=== PATIENT | male | born 1950 | race Caucasian/White ===

== ENCOUNTER 2020-10-30 16:06 | Emergency (ER) | payer MEDICARE, OTHER ==
[2020-10-30] MEDS ORDERED: KETOROLAC 30 MG/ML VIAL IVP STA (16:31)
--- NOTE | 2020-10-30 16:34 | ED Physician Documentation ---
History of Present Illness - Stated complaint Stated Complaint: FULL BODY PX - Chief complaint Chief Complaint: General - History obtained from History obtained from: Patient - Additonal information Additional information: 70-year-old gentleman with chronic back issues, says he needs disc surgery, also has atrial fibrillation on anticoagulation. He is visiting from [facility] with his new girlfriend who lives here. He went to the urgent care with complaints today and then requested to come to the emergency department. 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 There spasms of muscles generally affecting the right upper and both lower extremities as well as his back and stomach. He also says that his left thumb is affected, but the remainder of the left upper extremity is relatively spared. He was placed on some oxycodone for this by his primary care physician which helps only fleetingly. He went to the emergency department in [place], he says there he was given some IV fluid for presumed dehydration which was not helpful. Labs were checked but he does not know the results. Current medications include: Xarelto 20 mg orally once a day Diltiazem long-acting 200 filling 40 mg once a day Vitamin D3 1000 units once a day Flomax 0.4 mg once a day Synthroid 75 mcg once a day Atorvastatin 40 mg once a day (he says this is not new, but queried given that it causes myalgias) Lisinopril 40 mg once a day Lantus 25 units twice a day Novolin 25 units twice a day Review of Systems Constitutional: reports: Chills, Myalgias, Fatigue Eyes: denies: Loss of vision, Decreased vision Nose: denies: Rhinorrhea / runny nose Cardiac: reports: Palpitations, Calf pain Respiratory: reports: Dyspnea GI: reports: Abdominal Pain, Vomiting, Diarrhea : reports: Dysuria PD PAST MEDICAL HISTORY - Present Medications Home Medications: Ambulatory Orders Medication Instructions Recorded Confirmed Atorvastatin Calcium 40 mg PO HS 10/30/20 10/30/20 Cholecalciferol [Vitamin D3] 25 mcg PO DAILY 10/30/20 10/30/20 Insulin 70/30 Human [NovoLIN] 25 unit SUBQ BID 10/30/20 10/30/20 Insulin Glargine [Lantus Solostar] 25 unit SQ BID 10/30/20 10/30/20 LORazepam [Ativan] 1 mg PO TID PRN #7 tablet 10/30/20 Levothyroxine Sodium [Synthroid] 75 mcg PO DAILY 10/30/20 10/30/20 Lisinopril [Zestril] 40 mg PO DAILY 10/30/20 10/30/20 Rivaroxaban [Xarelto] 20 mg PO DAILY 10/30/20 10/30/20 Tamsulosin [Flomax] 0.4 mg PO DAILY 10/30/20 10/30/20 diltiaZEM CD [Cardizem Cd] 240 mg PO DAILY 10/30/20 10/30/20 - Allergies Allergies/Adverse Reactions: Allergies Allergy/AdvReac Type Severity Reaction Status Date / Time No Known Drug Allergies Allergy Verified 10/30/20 16:16 PD ED PE NORMAL - Vitals Vital signs reviewed: Yes - General General: Alert and oriented X 3, Other (Slightly agitated and fidgety) - HEENT HEENT: PERRL, EOMI - Neck Neck: Supple, no meningeal sign, No bony TTP - Cardiac Cardiac: Other (Frequent extrasystoles) - Respiratory Respiratory: No respiratory distress, Clear bilaterally - Abdomen Abdomen: Normal bowel sounds, Soft, Non tender - Back Back: No CVA TTP, No spinal TTP - Derm Derm: Normal color, Warm and dry - Extremities Extremities: No deformity, No tenderness to palpate, Normal ROM s pain, No edema, No calf tenderness / cord - Neuro Neuro: Alert and oriented X 3, electorate officer 2-12 intact, No motor deficit, No sensory deficit, Normal speech Results - Vitals Vitals: Vital Signs - 24 hr 10/30/20 10/30/20 16:11 16:38 Temperature 36.3 C L Heart Rate 98 103 H Respiratory 16 12 Rate Blood Pressure 148/65 H 143/83 H O2 Saturation 95 95 Oxygen O2 Source Room air - EKG (time done) 1624 Rate: Rate (enter#) (105) Rhythm: Other (Rhythm is not clear because of artifact; There is a lot of ectopy and a left bundle branch block.) - Labs Labs: Laboratory Tests 10/30/20 10/30/20 10/30/20 16:18 16:35 16:35 WBC 7.9 RBC 4.64 L Hgb 16.6 Hct 46.5 MCV 100.2 H MCH 35.8 H MCHC 35.7 RDW 17.7 H Plt Count 127 L MPV 10.1 Neut # (Auto) 5.0 Lymph # (Auto) 1.7 Charles # (Auto) 1.0 Eos # (Auto) 0.1 Baso # (Auto) 0.0 Absolute Nucleated RBC 0.00 Nucleated RBC % 0.0 VBG pH VBG pCO2 VBG pO2 VBG HCO3 VBG Total CO2 VBG O2 Saturation VBG Base Excess Sodium 132 L Potassium 4.7 Chloride 94 L Carbon Dioxide 27 Anion Gap 11.0 BUN 35 H Creatinine 1.2 Estimated GFR (MDRD) 60 L Glucose 190 H Lactic Acid Calcium 9.2 Magnesium 2.5 Total Bilirubin 2.3 H AST 16 ALT 20 Alkaline Phosphatase 55 Total Creatine Kinase 118 Troponin I High Sens Total Protein 7.7 Albumin 4.9 Globulin 2.8 Albumin/Globulin Ratio 1.8 Lipase 29 TSH Urine Color YELLOW Urine Clarity CLEAR Urine pH 5.0 Ur Specific [place] >=1.030 H Urine Protein NEGATIVE Urine Glucose (UA) NEGATIVE Urine Ketones NEGATIVE Urine Occult Blood NEGATIVE Urine Nitrite NEGATIVE Urine Bilirubin NEGATIVE Urine Urobilinogen 0.2 (NORMAL) Ur Leukocyte Esterase NEGATIVE Ur Microscopic Review NOT INDICATED Urine Culture Comments NOT INDICATED Urine Opiates Screen NEGATIVE Ur Oxycodone Screen POSITIVE H Urine Methadone Screen NEGATIVE Ur Propoxyphene Screen NEGATIVE Ur Barbiturates Screen NEGATIVE Ur Tricyclics Screen NEGATIVE Ur Phencyclidine Scrn NEGATIVE Ur Amphetamine Screen NEGATIVE U Methamphetamines Scrn NEGATIVE U Benzodiazepines Scrn NEGATIVE Urine Cocaine Screen NEGATIVE U Cannabinoids Screen NEGATIVE Ethyl Alcohol < 5.0 10/30/20 10/30/20 10/30/20 16:35 16:35 16:35 WBC RBC Hgb Hct MCV MCH MCHC RDW Plt Count MPV Neut # (Auto) Lymph # (Auto) Charles # (Auto) Eos # (Auto) Baso # (Auto) Absolute Nucleated RBC Nucleated RBC % VBG pH VBG pCO2 VBG pO2 VBG HCO3 VBG Total CO2 VBG O2 Saturation VBG Base Excess Sodium Potassium Chloride Carbon Dioxide Anion Gap BUN Creatinine Estimated GFR (MDRD) Glucose Lactic Acid 1.3 Calcium Magnesium Total Bilirubin AST ALT Alkaline Phosphatase Total Creatine Kinase Troponin I High Sens 16.3 Total Protein Albumin Globulin Albumin/Globulin Ratio Lipase TSH 1.04 Urine Color Urine Clarity Urine pH Ur Specific [place] Urine Protein Urine Glucose (UA) Urine Ketones Urine Occult Blood Urine Nitrite Urine Bilirubin Urine Urobilinogen Ur Leukocyte Esterase Ur Microscopic Review Urine Culture Comments Urine Opiates Screen Ur Oxycodone Screen Urine Methadone Screen Ur Propoxyphene Screen Ur Barbiturates Screen Ur Tricyclics Screen Ur Phencyclidine Scrn Ur Amphetamine Screen U Methamphetamines Scrn U Benzodiazepines Scrn Urine Cocaine Screen U Cannabinoids Screen Ethyl Alcohol 10/30/20 16:41 WBC RBC Hgb Hct MCV MCH MCHC RDW Plt Count MPV Neut # (Auto) Lymph # (Auto) Charles # (Auto) Eos # (Auto) Baso # (Auto) Absolute Nucleated RBC Nucleated RBC % VBG pH 7.352 VBG pCO2 52.1 H VBG pO2 28.7 VBG HCO3 28.2 H VBG Total CO2 29.8 H VBG O2 Saturation 56.3 L VBG Base Excess 1.5 Sodium Potassium Chloride Carbon Dioxide Anion Gap BUN Creatinine Estimated GFR (MDRD) Glucose Lactic Acid Calcium Magnesium Total Bilirubin AST ALT Alkaline Phosphatase Total Creatine Kinase Troponin I High Sens Total Protein Albumin Globulin Albumin/Globulin Ratio Lipase TSH Urine Color Urine Clarity Urine pH Ur Specific [place] Urine Protein Urine Glucose (UA) Urine Ketones Urine Occult Blood Urine Nitrite Urine Bilirubin Urine Urobilinogen Ur Leukocyte Esterase Ur Microscopic Review Urine Culture Comments Urine Opiates Screen Ur Oxycodone Screen Urine Methadone Screen Ur Propoxyphene Screen Ur Barbiturates Screen Ur Tricyclics Screen Ur Phencyclidine Scrn Ur Amphetamine Screen U Methamphetamines Scrn U Benzodiazepines Scrn Urine Cocaine Screen U Cannabinoids Screen Ethyl Alcohol PD MEDICAL DECISION MAKING - ED course ED course: 70-year-old gentleman presents with diffuse muscle cramps and spasms. Work-up here demonstrates elevated BUN and urine specific gravity with mild hyponatremia. This is probably consistent with dehydration as the underlying cause and he was feeling better after Toradol and a liter of IV saline. Departure - Departure Disposition: 01 Home, Self Care Clinical Impression: Dehydration, Hyponatremia, Muscle cramps Condition: Good Record reviewed to determine appropriate education?: Yes Instructions: ED Dehydration Prescriptions: LORazepam [Ativan] 1 mg PO TID PRN #7 tablet PRN Reason: Spasms Comments: You were seen today for muscle cramps. It seems like this is likely due to dehydration given the elevated BUN at 35 and the high urine specific gravity. No other serious issues were found although your sodium level was mildly low. Drink plenty of fluids and follow-up with your doctor this coming week for recheck. Return for new or worsening symptoms. For your physicians records your sodium level was 132; if you continue to have cramps despite drinking plenty of fluids you can also take the lorazepam. But do not drink or drive with that.
[2020-10-30 16:43] LABS: BASOPHILS % (AUTO) 0.3 %; EOSINOPHILS # (AUTO) 0.1 10^3/uL (0.0-0.7); EOSINOPHILS % (AUTO) 0.9 %; HCT - HEMATOCRIT 46.5 % (42.0-52.0); HGB - HEMOGLOBIN 16.6 g/dL (14.0-18.0); LYMPHOCYTES # (AUTO) 1.7 10^3/uL (1.5-3.5); LYMPHOCYTES % (AUTO) 22.1 %; MEAN CORPUSCULAR HEMOGLOBIN 35.8 pg (27.0-31.0); MEAN CORPUSCULAR HGB CONC 35.7 g/dL (32.0-36.0); MEAN CORPUSCULAR VOLUME 100.2 fL (80.0-94.0); MEAN PLATELET VOLUME 10.1 fL (7.4-11.4); NEUTROPHILS % (AUTO) 63.3 %; PLT - PLATELET COUNT 127 10^3/uL (130-450); RED BLOOD COUNT 4.64 10^6/uL (4.70-6.10); RED CELL DISTRIBUTION WIDTH 17.7 % (12.0-15.0); WHITE BLOOD COUNT 7.9 x10^3/uL (4.8-10.8)
[2020-10-30 16:46] LABS: MUDS CUTOFF CONCENTRATIONS CUTOFF CONC BELOW:
[2020-10-30 16:51] LABS: BILIRUBIN,URINE NEGATIVE (NEGATIVE); GLUCOSE, URINE (UA) NEGATIVE (NEGATIVE); KETONES,URINE (UA) NEGATIVE (NEGATIVE); LEUKOCYTE ESTERASE, URINE NEGATIVE (NEGATIVE); NITRITE,URINE NEGATIVE (NEGATIVE); OCCULT BLOOD,URINE NEGATIVE (NEGATIVE); PROTEIN,URINE NEGATIVE (NEGATIVE); UROBILINOGEN,URINE 0.2 (NORMAL) E.U./dL (NORMAL)
[2020-10-30 16:53] LABS: VBG BASE EXCESS 1.5 mmol/L (-2 - +2); VBG HCO3 28.2 mmol/L (23-28); VBG PCO2 52.1 mmHg (41-51); VBG PH 7.352 (7.31-7.41); VBG PO2 28.7 mmHg (25-47); VBG TOTAL CO2 29.8 mmol/L (24-29)
[2020-10-30 16:54] LABS: VBG OXYGEN SATURATION 56.3 % (60-80)
[2020-10-30 16:54] LABS: ALBUMIN 4.9 g/dL (3.2-5.5); ALBUMIN/GLOBULIN RATIO 1.8 (1.0-2.2); ALKALINE PHOSPHATASE 55 IU/L (42-121); ALT ALANINE AMINOTRANSFERASE 20 IU/L (10-60); AST ASPARTATE AMINOTRANSFERASE 16 IU/L (10-42); BILIRUBIN,TOTAL 2.3 mg/dL (0.2-1.0); BUN - BLOOD UREA NITROGEN 35 mg/dL (6-20); CALCIUM 9.2 mg/dL (8.5-10.3); CARBON DIOXIDE - CO2 27 mmol/L (21-32); CHLORIDE 94 mmol/L (101-111); CK- CREATINE KINASE 118 IU/L (22-269); CREATININE 1.2 mg/dL (0.6-1.2); ETOH - ETHANOL < 5.0 mg/dL; GFR - MDRD 60 (>89); GLUCOSE 190 mg/dL (70-100); LIPASE 29 U/L (22-51); MAGNESIUM 2.5 mg/dL (1.7-2.8); POTASSIUM 4.7 mmol/L (3.5-5.0); SODIUM 132 mmol/L (135-145); TOTAL PROTEIN 7.7 g/dL (6.7-8.2)
[2020-10-30 16:54] LABS: CLARITY,URINE CLEAR (CLEAR)
[2020-10-30] MEDS ORDERED: SODIUM CHLORIDE 0.9% 1,000 ML IV STA (16:55)
[2020-10-30 17:02] LABS: AMPHETAMINE SCREEN,URINE NEGATIVE (NEGATIVE); BARBITURATE SCREEN,UR NEGATIVE (NEGATIVE); BENZODIAZEPINES SCREEN, URINE NEGATIVE (NEGATIVE); COCAINE SCREEN URINE NEGATIVE (NEGATIVE); METHADONE SCREEN, URINE NEGATIVE (NEGATIVE); METHAMPHETAMINES SCREEN, URINE NEGATIVE (NEGATIVE); OPIATE SCREEN, URINE NEGATIVE (NEGATIVE); OXYCODONE SCREEN, URINE POSITIVE (NEGATIVE); PROPOXYPHENE SCREEN, URINE NEGATIVE (NEGATIVE); THC CANNABINOID SCREEN, URINE NEGATIVE (NEGATIVE); TRICYCLIC ANTIDEPRESSANT,URINE NEGATIVE (NEGATIVE)
[2020-10-30 17:41] VITALS: BP 170/76
== END 2020-10-30 18:10 | disposition home or self-care (01) ==
LOC: ED 16:06
DX: E86.0 Dehydration (principal); E87.1 Hypo-osmolality and hyponatremia; M62.838 Other muscle spasm; I48.91 Unspecified atrial fibrillation; Z79.01 Long term (current) use of anticoagulants; I44.7 Left bundle-branch block, unspecified
CPT/HCPCS: 36415; 80053; 80306; 81003; 82550; 82803; 83605; 83690; 83735; 84443; 84484; 85025; 93005; 96361; 96374; 99284; G0480; 80320; 81001; 87086